=== PATIENT | female | born 1965 | race Caucasian/White ===

== ENCOUNTER → 2016-06-01 | Outpatient (CLI) | payer OTHER ==
--- NOTE | 2016-06-01 16:37 | REP ---
Digital screening mammography with CAD: Comparison mammography: 04/12/2015, 01/20/2014, and 12/15/2012. Mammographic findings: Scattered fibroglandular elements are again seen. There is a asymmetric density in the medial aspect of the left breast on today's mammography measuring roughly 1.6 x 0.9 cm. It is not confidently identified on the orthogonal MLO view but is seen on the CC view. Does not appear to have been present previously and merits further evaluation. The remainder of the left breast and the entirety of the right breast are otherwise unchanged and unremarkable. No microcalcification, spiculation or worrisome skin change is seen. Impression: BIRADS category 0 incomplete breast imaging. 9 x 16 mm asymmetric density in the medial aspect of the left breast on craniocaudad view. Recommend diagnostic left breast mammography and focused left breast sonography. This mammogram was interpreted with the aid of an FDA-approved computer-aided detection system. The patient states she/he had a clinical breast exam in May 2016. The patient letter being requested is M0.
== END ==
LOC: M WHC 13:23
PROVIDERS: ATTEND Nurse Practitioner Family
DX: Z12.31 Encounter for screening mammogram for malignant neoplasm of breast (principal); R92.8 Other abnormal and inconclusive findings on diagnostic imaging of breast

== ENCOUNTER → 2016-06-08 | Outpatient (CLI) | payer OTHER ==
--- NOTE | 2016-06-08 14:36 | REP ---
Digital diagnostic unilateral left breast mammography with CAD: Focused left breast sonography: History: Screening mammography June 01, 2016 was BIRADS category 0 incomplete because of a nodular asymmetric density in the inferomedial quadrant. Diagnostic imaging was recommended. Comparison is also made with April 12, 2015 prior mammography. January 20, 2014 prior mammography is also reviewed. Mammographic findings: Magnified focal spot compression CC, true MLO, and MLO views of the left breast confirm the presence of an oval-shaped neodensity in the inferomedial quadrant. It has well-circumscribed margins. No other mammographic finding. Sonographic findings: The left breast is scanned through the inferomedial quadrant 6 o'clock to 9 o'clock. There is a septated otherwise simple cyst at 7 o'clock position measuring 1.3 x 1.2 x 0.6 cm, which is felt to account for the mammographic opacity. This is 1.7 cm from the nipple. Impression: BIRADS category 2 benign left breast imaging. Septated cyst seen inferiorly and medially in the left breast. Screening bilateral mammography recommended 1 year. BI-RADS/ACR category 2 mammogram. Benign finding(s). Routine annual screening mammography (for women over age 40). This mammogram was interpreted with the aid of an FDA-approved computer-aided detection system. The patient states she/he had a clinical breast exam in May 2016 The patient letter being requested is M1 . Signed by Reza Byrnes MD 06/08/2016 07:28 P
== END ==
LOC: M RAD 13:25
PROVIDERS: ATTEND Nurse Practitioner Family
DX: N60.02 Solitary cyst of left breast (principal)

== ENCOUNTER 2017-07-23 09:46 | Emergency (ER) | payer OTHER | END 2017-07-23 10:25 | disposition home or self-care (01) | LOC: M ED 09:46 | DX: M65.241 Calcific tendinitis, right hand (principal); G62.9 Polyneuropathy, unspecified; Z79.899 Other long term (current) drug therapy | CPT/HCPCS: 99283 ==

== ENCOUNTER → 2017-10-08 | Outpatient (CLI) | payer OTHER | LOC: M WHC 08:25 | DX: Z12.31 Encounter for screening mammogram for malignant neoplasm of breast (principal); Z79.890 Hormone replacement therapy; R92.8 Other abnormal and inconclusive findings on diagnostic imaging of breast | CPT/HCPCS: 77067 ==

== ENCOUNTER → 2017-10-08 | Outpatient (REF) | payer OTHER | LOC: M SFHCWAGY 11:53 | DX: Z12.4 Encounter for screening for malignant neoplasm of cervix (principal) ==

== ENCOUNTER → 2018-12-30 | Outpatient (CLI) | payer OTHER ==
[~2018-12-30] MED LIST: AMIT50TA PO; AMLO5TAB6 PO; CRYS28TA PO; IBUP200C25 PO; NAPR-837 PO
--- NOTE | 2018-12-30 13:24 | REPMRS ---
Patient History The patient states she had a clinical breast exam in 12/2018. Family history of breast cancer at age 95 in maternal grandmother, prostate cancer at age 50 or over in father. Taking hormonal contraceptives for 13 years. 3D TOMOSYNTHESIS WAS PERFORMED. [facility] for [facility] 12.[facility]%. Digital Woman Screen Mammo: December 30, 2018 - Exam #: [id number] Bilateral CC and MLO view(s) were taken. Technologist: Oumou Bennett, Technologist Prior study comparison: October 08, 2017, digital woman screen mammo performed at [facility]. June 08, 2016, left breast digital mammo diagnostic unilateral, performed at [facility]. FINDINGS: The breast tissue is heterogeneously dense. This may lower the sensitivity of mammography. There has been no change in the appearance of the mammogram from the prior studies. There is a moderate amount of residual fibroglandular tissue which is fairly symmetric. There is no interval development of dominant mass, areas of architectural distortion, or clustered microcalcification typical of malignancy. Assessment: BI-RADS/ACR category 1 mammogram. Negative Mammogram. Recommendation Routine screening mammogram in 1 year (for women over age 40). This mammogram was interpreted with the aid of an FDA-approved computer-aided dectection system. Electronically Signed By: Barrie Schwarz MD 12/30/18 [id number]
== END ==
LOC: M WHC 09:26
PROVIDERS: ATTEND Nurse Practitioner Family
DX: Z12.31 Encounter for screening mammogram for malignant neoplasm of breast (principal); Z79.3 Long term (current) use of hormonal contraceptives

== ENCOUNTER → 2019-01-12 | Outpatient (CLI) | payer OTHER ==
--- NOTE | 2019-01-13 08:09 | REP ---
PELVIC ULTRASOUND: Real-time sonographic evaluation of the pelvis was performed utilizing transabdominal and endovaginal technique. The bladder measures 9.4 x 9.2 x 11.2 cm. The uterus measures 8.5 x 3.8 x 5.2 cm. Endometrial thickness is 6 mm with no endometrial fluid collection. The ovaries appear normal in size and echotexture, right ovary measuring 1.3 x 1.1 x 1.5 cm and left ovary 1.3 x 1.0 x 1.2 cm. There is no evidence of adnexal mass. No free fluid is seen. IMPRESSION: Essentially negative pelvic ultrasound.
== END ==
LOC: M WHC 15:30
PROVIDERS: ATTEND Nurse Practitioner Family
DX: N92.6 Irregular menstruation, unspecified (principal)

== ENCOUNTER → 2020-02-26 | Outpatient (CLI) | payer OTHER ==
[~2020-02-26] MED LIST changes: +AMLO1TAB24 PO; -AMLO5TAB6 PO
== END ==
LOC: M LABSMTC 12:45
PROVIDERS: ATTEND Orthopaedic Surgery
DX: Z20.828 Contact with and (suspected) exposure to other viral communicable diseases (principal)

== ENCOUNTER → 2020-09-14 | Outpatient (CLI) | payer OTHER ==
--- NOTE | 2020-09-14 14:36 | REPMRS ---
Patient History The patient states she had a clinical breast exam in 09/2020. Family history of breast cancer at age 95 in maternal grandmother, prostate cancer at age 50 or over in father. Took hormonal contraceptives for 13 years. Patient states no breast complaints today. Patient has signed MRS History Sheet. Digital Woman Screen Mammo: September 14, 2020 - Exam #: [id number] Bilateral CC and MLO view(s) were taken. Technologist: Oumou Bennett, Technologist Prior study comparison: December 30, 2018, bilateral digital woman screen mammo performed at [facility]. October 08, 2017, digital woman screen mammo performed at [facility]. FINDINGS: There are scattered fibroglandular densities. Screening. Digital screening (2D) mammography was performed bilaterally in the CC and MLO projections. Additionally, breast tomosynthesis (3D mammography) was performed bilaterally in the CC and MLO projections. Todays exam was compared to the prior exams. By history, the patient has no complaints of a palpable breast abnormality or other significant breast complaints. The breasts are unchanged in size and shape. There are no melanie-soft tissue densities or spiculated masses. There is no internal architectural distortion. There are no suspicious melanie-calcific clusters. Skin thickening or nipple retraction is not present. IMPRESSION: BI-RADS Category 2- Benign Findings. There is no evidence of malignant alteration of the breasts. Followup examination recommended in one year. The Volpara volumetric breast density category is B, there are scattered areas of fibroglandular density. This mammogram was read with the assistance of [facility],an FDA approved computer aided detection system for mammography. The lifetime Tyrer-Cuzick score is 11.8 % Negative x-ray reports should not delay surgical consultation if a dominant or clinically suspicious mass is present. Not all breast cancers can be identified by mammography. Therefore, we recommend that you continue to perform regular breast self-examination and physical examination and then promptly contact your physician of any concerns or changes. Adenosis and dense breasts may obscure an underlying neoplasm. Assessment: BI-RADS/ACR category 2 mammogram. Benign Findings. Recommendation Routine screening mammogram of both breasts in 1 year. Electronically Signed By: Fidencio Diallo DO 09/14/20 [id number]
== END ==
LOC: M WHC 13:31
PROVIDERS: ATTEND Nurse Practitioner Women's Health
DX: Z12.31 Encounter for screening mammogram for malignant neoplasm of breast (principal); Z80.3 Family history of malignant neoplasm of breast; Z80.42 Family history of malignant neoplasm of prostate

== ENCOUNTER → 2020-09-14 | Outpatient (REF) | payer OTHER | LOC: M SFHCWAGY 17:17 | PROVIDERS: ATTEND Nurse Practitioner Women's Health | DX: Z12.4 Encounter for screening for malignant neoplasm of cervix (principal) | CPT/HCPCS: 87624; G0123 ==

== ENCOUNTER → 2022-02-06 | Outpatient (CLI) | payer OTHER | LOC: M WHC 09:52 | PROVIDERS: ATTEND Specialist | DX: Z12.31 Encounter for screening mammogram for malignant neoplasm of breast (principal) ==

== ENCOUNTER → 2023-08-13 | Outpatient (CLI) | payer OTHER | LOC: M WHC 08:52 | PROVIDERS: ATTEND Specialist | DX: Z12.31 Encounter for screening mammogram for malignant neoplasm of breast (principal); R92.323 Mammographic fibroglandular density, bilateral breasts ==

== ENCOUNTER → 2023-08-13 | Outpatient (REF) | payer OTHER | LOC: M SFHCWAGY 12:46 | PROVIDERS: ATTEND Specialist | DX: Z12.4 Encounter for screening for malignant neoplasm of cervix (principal); N95.2 Postmenopausal atrophic vaginitis ==

== ENCOUNTER → 2025-02-12 | Outpatient (CLI) | payer OTHER | LOC: M WHC 10:58 | PROVIDERS: ATTEND Specialist | DX: Z12.31 Encounter for screening mammogram for malignant neoplasm of breast (principal); R92.323 Mammographic fibroglandular density, bilateral breasts ==